=== PATIENT | female | born 1960 | race Caucasian/White ===

== ENCOUNTER 2021-11-22 13:03 | Emergency (ER) | payer OTHER ==
[2021-11-22 14:31] LABS: HEMOGLOBIN 11.7 gm/dl (12.3-15.3); RED BLOOD COUNT 4.08 M/UL (4.00-5.10); WHITE BLOOD COUNT 6.8 K/UL (4.5-11.0)
[2021-11-22 15:09] LABS: BUN/CREATININE RATIO 19 (0-10)
[2021-11-22] MEDS ORDERED: OMNICEF 300 MG300 MG PO (16:32)
== END 2021-11-22 18:25 | disposition home or self-care (01) ==
LOC: ER1 13:03
PROVIDERS: Physician Assistant
DX: R91.1 Solitary pulmonary nodule (principal); J90 Pleural effusion, not elsewhere classified; R59.0 Localized enlarged lymph nodes; J43.9 Emphysema, unspecified; F17.210 Nicotine dependence, cigarettes, uncomplicated; Z90.89 Acquired absence of other organs; Z90.710 Acquired absence of both cervix and uterus; Z88.0 Allergy status to penicillin; Z88.2 Allergy status to sulfonamides
CPT/HCPCS: 71045; 80053; 81001; 82550; 82553; 84484; 85025; 85379; 87077; 87086; 87186; 93005; 96374; 99284; J1885; Q9967